=== PATIENT | male | born 1935 | race Caucasian/White ===

== ENCOUNTER 2022-07-24 09:56 | Inpatient (IN) | payer MEDICARE ==
[2022-07-24] MEDS ORDERED: SODIUM CHLORIDE 0.9% 1,000 ML IV STA (10:19)
[2022-07-24] MEDS ORDERED: ASPIRIN 81 MG PO STA (10:19)
[2022-07-24] MEDS ORDERED: DILTIAZEM DRIP BOLUS FROM BAG 1 MG SOLN IV ONE (10:19)
--- NOTE | 2022-07-24 10:23 | ED ---
General Adult HPI - General Chief complaint: Arrhythmia/Palpitations Stated complaint: AFib, Sent by PCP Time Seen by Provider: 07/24/22 10:06 Source: patient, RN notes reviewed, old records reviewed (old laboratories were sent by PCP) Mode of arrival: EMS Limitations: no limitations - History of Present Illness Initial comments: Patient is a pleasant 86-year-old male presenting to the emergency department with lightheadedness. Patient has had nasal congestion and rhinorrhea with mild cough for the past few days. Patient has felt lightheaded for the past day or so. Patient saw his primary care physician and was diagnosed with A. fib and advised to come to the emergency department. Patient does have previous history of this and believes he is on medication including anticoagulation for this. Patient denies palpitations. No chest pain. Patient states he tested negative for influenza and COVID-19 infection in the primary care physician office. - Related Data Home Medications Medication Instructions Recorded Confirmed Apixaban [Eliquis] 5 mg PO BID 07/24/22 07/24/22 Atorvastatin [Lipitor] 40 mg PO HS 07/24/22 07/24/22 Econazole Nitrate [Econazole 1 applic TOPICAL DAILY 07/24/22 07/24/22 Nitrate 1%] Finasteride [Proscar] 5 mg PO DAILY 07/24/22 07/24/22 Levothyroxine Sodium [Levoxyl] 75 mcg PO DAILY 07/24/22 07/24/22 Losartan Potassium 50 mg PO DAILY 07/24/22 07/24/22 Primidone [Mysoline] 50 mg PO DAILY 07/24/22 07/24/22 Spironolactone [Aldactone] 25 mg PO HS 07/24/22 07/24/22 Tamsulosin HCl [Flomax] 0.4 mg PO HS 07/24/22 07/24/22 Allergies Allergy/AdvReac Type Severity Reaction Status Date / Time Penicillins Allergy Unknown Verified 07/24/22 11:13 Childhood Review of Systems ROS Statement: Those systems with pertinent positive or pertinent negative responses have been documented in the HPI. ROS Other: All systems not noted in ROS Statement are negative. Constitutional: Denies: fever Eyes: Denies: eye pain ENT: Reports: congestion. Denies: ear pain Respiratory: Reports: cough. Denies: dyspnea Cardiovascular: Denies: chest pain, palpitations Endocrine: Denies: fatigue Gastrointestinal: Denies: abdominal pain Genitourinary: Denies: dysuria Musculoskeletal: Denies: back pain Skin: Denies: rash Neurological: Denies: weakness Past Medical History Past Medical History: Atrial Flutter, Heart Failure, Hypertension, Sleep Apnea/CPAP/BIPAP, Thyroid Disorder Additional Past Medical History / Comment(s): BPH History of Any Multi-Drug Resistant Organisms: None Reported Past Surgical History: Appendectomy, Orthopedic Surgery Smoking Status: Never smoker Past Alcohol Use History: None Reported Past Drug Use History: None Reported General Exam Limitations: no limitations General appearance: alert, in no apparent distress Head exam: Present: normocephalic Eye exam: Present: normal appearance Neck exam: Present: normal inspection Respiratory exam: Present: normal lung sounds bilaterally Cardiovascular Exam: Present: tachycardia, normal heart sounds Expanded Peripheral pulses: 2+: Radial (R), Radial (L), Posterior Tibialis (R), Posterior Tibialis (L) GI/Abdominal exam: Present: soft. Absent: tenderness Extremities exam: Present: normal inspection. Absent: pedal edema, calf tenderness Neurological exam: Present: alert. Absent: motor sensory deficit Psychiatric exam: Present: normal affect, normal mood Skin exam: Present: normal color Course Vital Signs 07/24/22 07/24/22 07/24/22 09:57 10:26 11:14 Temperature 97.4 F L Pulse Rate 116 H 122 H 109 H Respiratory 18 19 Rate Blood Pressure 157/87 122/85 109/85 O2 Sat by Pulse 98 Oximetry 07/24/22 11:39 Temperature Pulse Rate 98 Respiratory Rate Blood Pressure O2 Sat by Pulse Oximetry - Reevaluation(s) Reevaluation #1: 07/24/22 10:31 Patient confirms he is on eliquis 07/24/22 13:35 EKG #2 at 1316 shows continued H a flutter rate 119. Left axis. LVH criteria. Nonspecific ST-T. EKG interpreted by myself. Patient reevaluated and updated. Case was discussed in detail with Dr. Heller, who will admit covering Dr. Melgar. EKG Findings - EKG Results: EKG: interpreted by ERMD (Atrial flutter rate 118, RVR. Left axis. Incomplete right bundle-branch block. Nonspecific ST-T.) Medical Decision Making - Lab Data Result diagrams: 07/24/22 10:28 07/24/22 10:28 Lab Results 07/24/22 07/24/22 07/24/22 Range/Units 10:28 10: 10:28 WBC 7.2 (3.8-10.6) k/uL RBC 4.96 (4.30-5.90) m/uL Hgb 15.2 (13.0-17.5) gm/dL Hct 45.5 (39.0-53.0) % MCV 91.7 (80.0-100.0) fL MCH 30.7 (25.0-35.0) pg MCHC 33.5 (31.0-37.0) g/dL RDW 14.2 (11.5-15.5) % Plt Count 187 (150-450) k/uL MPV 8.2 Neutrophils % 66 % Lymphocytes % 22 % Monocytes % 6 % Eosinophils % 2 % Basophils % 1 % Neutrophils # 4.7 (1.3-7.7) k/uL Lymphocytes # 1.6 (1.0-4.8) k/uL Monocytes # 0.4 (0-1.0) k/uL Eosinophils # 0.2 (0-0.7) k/uL Basophils # 0.1 (0-0.2) k/uL PT 11.2 (9.0-12.0) sec INR 1.1 (<1.2) APTT 26.6 (22.0-30.0) sec Sodium 143 (137-145) mmol/L Potassium 3.9 (3.5-5.1) mmol/L Chloride 110 H (98-107) mmol/L Carbon Dioxide 24 (22-30) mmol/L Anion Gap 9 mmol/L BUN 24 H (9-20) mg/dL Creatinine 0.92 (0.66-1.25) mg/dL Est GFR (CKD-EPI)AfAm 88 (>60 ml/min/1.73 sqM) Est GFR (CKD-EPI)NonAf 76 (>60 ml/min/1.73 sqM) Glucose 92 (74-99) mg/dL Calcium 8.8 (8.4-10.2) mg/dL Magnesium 1.9 (1.6-2.3) mg/dL Total Bilirubin 0.7 (0.2-1.3) mg/dL AST 29 (17-59) U/L ALT 27 (4-49) U/L Alkaline Phosphatase 73 (38-126) U/L Troponin I (0.000-0.034) ng/mL Total Protein 7.4 (6.3-8.2) g/dL Albumin 4.2 (3.5-5.0) g/dL TSH 1.810 (0.465-4.680) mIU/L Free T4 1.22 (0.78-2.19) ng/dL Free T3 pg/mL 3.9 (2.8-5.3) pg/ml 07/24/22 Range/Units 10:28 WBC (3.8-10.6) k/uL RBC (4.30-5.90) m/uL Hgb (13.0-17.5) gm/dL Hct (39.0-53.0) % MCV (80.0-100.0) fL MCH (25.0-35.0) pg MCHC (31.0-37.0) g/dL RDW (11.5-15.5) % Plt Count (150-450) k/uL MPV Neutrophils % % Lymphocytes % % Monocytes % % Eosinophils % % Basophils % % Neutrophils # (1.3-7.7) k/uL Lymphocytes # (1.0-4.8) k/uL Monocytes # (0-1.0) k/uL Eosinophils # (0-0.7) k/uL Basophils # (0-0.2) k/uL PT (9.0-12.0) sec INR (<1.2) APTT (22.0-30.0) sec Sodium (137-145) mmol/L Potassium (3.5-5.1) mmol/L Chloride (98-107) mmol/L Carbon Dioxide (22-30) mmol/L Anion Gap mmol/L BUN (9-20) mg/dL Creatinine (0.66-1.25) mg/dL Est GFR (CKD-EPI)AfAm (>60 ml/min/1.73 sqM) Est GFR (CKD-EPI)NonAf (>60 ml/min/1.73 sqM) Glucose (74-99) mg/dL Calcium (8.4-10.2) mg/dL Magnesium (1.6-2.3) mg/dL Total Bilirubin (0.2-1.3) mg/dL AST (17-59) U/L ALT (4-49) U/L Alkaline Phosphatase (38-126) U/L Troponin I <0.012 (0.000-0.034) ng/mL Total Protein (6.3-8.2) g/dL Albumin (3.5-5.0) g/dL TSH (0.465-4.680) mIU/L Free T4 (0.78-2.19) ng/dL Free T3 pg/mL (2.8-5.3) pg/ml Critical Care Time Critical Care Time: Yes Total Critical Care Time: 32 Disposition Clinical Impression: Atrial flutter Disposition: ADMITTED IP TO THIS HOSP Is patient prescribed a controlled substance at d/c from ED?: No Referrals: Ousmane Ngo DO [Primary Care Provider] - 1-2 days Time of Disposition: 13:36
[2022-07-24 10:48] LABS: INR 1.1 (<1.2); Partial Thromboplastin Time 26.6 sec (22.0-30.0); Prothrombin Time 11.2 sec (9.0-12.0)
--- NOTE | 2022-07-24 10:49 | XR ---
EXAMINATION TYPE: XR chest 2V DATE OF EXAM: 07/24/2022 COMPARISON: None HISTORY: 86-year-old male dysrhythmia, lightheaded TECHNIQUE: PA and lateral views FINDINGS: Heart limits of normal size. Aorta and pulmonary vasculature within normal limits. Mild hyperinflatio n. Strandy atelectasis in the lower lungs. No az consolidation or pleural effusion. In addition th e mid to lower thoracic spine. IMPRESSION: Hyperinflation may relate to depth of inspiration or underlying emphysema. Heart is borderline in siz e. Otherwise, no definite acute process.
[2022-07-24 10:55] LABS: Basophils # (A) 0.1 k/uL (0-0.2); Basophils % (A) 1 %; Eosinophils # (A) 0.2 k/uL (0-0.7); Eosinophils % (A) 2 %; HCT 45.5 % (39.0-53.0); HGB 15.2 gm/dL (13.0-17.5); Lymphocytes # (A) 1.6 k/uL (1.0-4.8); Lymphocytes % (A) 22 %; MCH 30.7 pg (25.0-35.0); MCHC 33.5 g/dL (31.0-37.0); MCV 91.7 fL (80.0-100.0); Mean Platelet Volume 8.2; Monocytes # (A) 0.4 k/uL (0-1.0); Monocytes % (A) 6 %; Neutrophils # (A) 4.7 k/uL (1.3-7.7); Neutrophils % (A) 66 %; Platelet Count 187 k/uL (150-450); RBC 4.96 m/uL (4.30-5.90); RDW 14.2 % (11.5-15.5); WBC 7.2 k/uL (3.8-10.6)
[2022-07-24 10:58] LABS: Albumin 4.2 g/dL (3.5-5.0); Calcium 8.8 mg/dL (8.4-10.2); Magnesium 1.9 mg/dL (1.6-2.3); Potassium 3.9 mmol/L (3.5-5.1); Total Bilirubin 0.7 mg/dL (0.2-1.3); Total Protein 7.4 g/dL (6.3-8.2)
[2022-07-24 11:14] LABS: T4, Free (Free Thyroxine) 1.22 ng/dL (0.78-2.19)
[2022-07-24] MEDS ORDERED: DILTIAZEM 5 MG/ML 5 ML VIAL IV ONE (11:15)
[2022-07-24] MEDS ORDERED: NALOXONE 0.4 MG/ML 1 ML VIAL IV PRN (13:37)
[2022-07-24] MEDS ORDERED: ACETAMINOPHEN TAB 325 MG TAB PO PRN (13:37)
[2022-07-24] MEDS: DILTIAZEM 125 MG in SODIUM CHLORIDE 0.9% 100 ML IV SCH (14:04)
[2022-07-24] MEDS: SODIUM CHLORIDE 0.9% 1,000 ML IV SCH (14:09)
[2022-07-24] MEDS: CLOTRIMAZOLE 1% CREAM 30 GM TUBE TOPICAL SCH (18:20)
[2022-07-24] MEDS: FINASTERIDE 5 MG TAB PO SCH (19:13)
[2022-07-24] MEDS: APIXABAN 5 MG TAB PO SCH (20:37)
[2022-07-24] MEDS: ATORVASTATIN 40 MG TAB PO SCH (20:37)
[2022-07-24] MEDS: TAMSULOSIN 0.4 MG CAP.ER.24H PO SCH (20:37)
[2022-07-24] MEDS: SPIRONOLACTONE 25 MG TAB PO SCH (20:37)
[2022-07-25] MEDS: LEVOTHYROXINE 75 MCG TAB PO SCH (05:22)
[2022-07-25] MEDS: DILTIAZEM 125 MG in SODIUM CHLORIDE 0.9% 100 ML IV SCH (06:32)
[2022-07-25 07:34] LABS: Basophils % (A) 1 %; Eosinophils # (A) 0.2 k/uL (0-0.7); Eosinophils % (A) 4 %; HCT 42.7 % (39.0-53.0); Lymphocytes # (A) 1.5 k/uL (1.0-4.8); Lymphocytes % (A) 26 %; MCH 30.5 pg (25.0-35.0); MCHC 32.8 g/dL (31.0-37.0); MCV 92.8 fL (80.0-100.0); Mean Platelet Volume 8.4; Monocytes # (A) 0.4 k/uL (0-1.0); Monocytes % (A) 7 %; Neutrophils # (A) 3.5 k/uL (1.3-7.7); Neutrophils % (A) 60 %; Platelet Count 164 k/uL (150-450); RDW 13.8 % (11.5-15.5); WBC 5.8 k/uL (3.8-10.6)
[2022-07-25 07:48] LABS: AST 32 U/L (17-59); African American GFR (CKD) >90 (>60 ml/min/1.73 sqM); Albumin 3.6 g/dL (3.5-5.0); Alkaline Phosphatase 49 U/L (38-126); Anion Gap 7 mmol/L; Blood Urea Nitrogen 22 mg/dL (9-20); Calcium 8.4 mg/dL (8.4-10.2); Carbon Dioxide 21 mmol/L (22-30); Chloride 111 mmol/L (98-107); Glucose 86 mg/dL (74-99); Non-African American GFR(CKD) 81 (>60 ml/min/1.73 sqM); Sodium 139 mmol/L (137-145); Total Protein 6.7 g/dL (6.3-8.2)
[2022-07-25 07:49] LABS: ALT 25 U/L (4-49)
[2022-07-25 07:56] LABS: Potassium 4.1 mmol/L (3.5-5.1)
[2022-07-25] MEDS: PRIMIDONE 50 MG TAB PO SCH (08:17)
[2022-07-25] MEDS: CLOTRIMAZOLE 1% CREAM 30 GM TUBE TOPICAL SCH (08:17)
[2022-07-25] MEDS: APIXABAN 5 MG TAB PO SCH ×2 (08:17→19:53)
[2022-07-25] MEDS: FINASTERIDE 5 MG TAB PO SCH (08:17)
[2022-07-25] MEDS ORDERED: LOSARTAN 50 MG TAB PO SCH (09:00)
--- NOTE | 2022-07-25 10:42 | P.CRDCN ---
History of Present Illness History of present illness: HISTORY OF PRESENTING ILLNESS Patient is pleasant 86-year-old male with history of congestive heart failure, atrial flutter status post prior YENNY cardioversion at [facility] 2020 as well as heart catheterization from [facility] reportedly relatively normal, hypertension who presents from doctor's office secondary to tachycardia. Patient states he did stop his Alquist 3 weeks ago for tooth infection and since that time has been having some issues with feeling his heart racing. Previous in 2020 he did have a syncopal episode apparently with heart rate in the 200 range. He had been on metoprolol however this was discontinued, unclear if this was related to bradycardia. Over last few weeks he has been noticing feeling lightheaded at times when he is standing up and nearly passing out. He denies any chest pain or pressure. He had actually gone his PCP because of sinus congestion however no cough or fevers or chills. EKG shows atrial flutter with nonspecific ST changes. Patient was placed on Cardizem drip with heart rates still in the 90s to 100s. REVIEW OF SYSTEMS At the time of my exam: CONSTITUTIONAL: Denies fever or chills. CARDIOVASCULAR: Denies chest pain, shortness of breath, orthopnea, PND or palpitations. +lightheadedness RESPIRATORY: Denies cough. GASTROINTESTINAL: Denies abdominal pain, diarrhea, constipation, nausea or vomiting. MUSCULOSKELETAL: Denies myalgias. NEUROLOGIC: Denies numbness, tingling or weakness. ENDOCRINE: Denies fatigue, weight change, polydipsia or polyurina. GENITOURINARY: Denies burning, hematuria or urgency with micturation. HEMATOLOGIC: Denies history of anemia or bleeding. PHYSICAL EXAMINATION Vital signs reviewed. CONSTITUTIONAL: No apparent distress. HEENT: Head is normocephalic. Pupils are equal, round. Sclerae anicteric. Mucous membranes of the mouth are moist. No JVD. No carotid bruit. CHEST EXAMINATION: Lungs are clear to auscultation. No chest wall tenderness is noted on palpation or with deep breathing. HEART EXAMINATION: Irregular rate and rhythm, tcahycardic. S1, S2 heard. No murm urs, gallops or rub. ABDOMEN: Soft, nontender. Positive bowel sounds. EXTREMITIES: 2+ peripheral pulses, no lower extremity edema and no calf tenderness. NEUROLOGIC EXAMINATION: Patient is awake, alert and oriented x3. ASSESSMENT 1. Typical atrial flutter with RVR 2. Episodes of lightheadedness possibly exacerbated by atrial flutter 3. History of syncope 4. Previously taken off metoprolol, likely related to bradycardic episodes 5. Hypertension 6. Recent sinus congestion 7. History of congestive heart failure PLAN Patient with lightheadedness which likely is exacerbated by the atrial flutter. Lightheadedness is episodic and apparently had some issues with bradycardia in the past. Given patient fairly symptomatic discussed rhythm control with YENNY and cardioversion and patient is agreeable. Long-term patient may benefit from ablation even at his age given high success rate of atrial flutter ablation. Decrease losartan to 25 mg given lightheadedness. If YENNY and cardioversion successful and patient stable and afternoon, patient may be discharged home. Past Medical History Past Medical History: Atrial Flutter, Heart Failure, Hypertension, Prostate Disorder, Sleep Apnea/CPAP/BIPAP, Thyroid Disorder Additional Past Medical History / Comment(s): BPH History of Any Multi-Drug Resistant Organisms: None Reported Past Surgical History: Appendectomy, Orthopedic Surgery Past Anesthesia/Blood Transfusion Reactions: No Reported Reaction Smoking Status: Never smoker - Past Family History Father Family Medical History: Cancer, Diabetes Mellitus Mother Family Medical History: Diabetes Mellitus Brother(s) Family Medical History: Diabetes Mellitus Medications and Allergies Home Medications Medication Instructions Recorded Confirmed Type Apixaban [Eliquis] 5 mg PO BID 07/24/22 07/24/22 History Atorvastatin [Lipitor] 40 mg PO HS 07/24/22 07/24/22 History Econazole Nitrate [Econazole 1 applic TOPICAL DAILY 07/24/22 07/24/22 History Nitrate 1%] Finasteride [Proscar] 5 mg PO DAILY 07/24/22 07/24/22 History Levothyroxine Sodium [Levoxyl] 75 mcg PO DAILY 07/24/22 07/24/22 History Losartan Potassium 50 mg PO DAILY 07/24/22 07/24/22 History Primidone [Mysoline] 50 mg PO DAILY 07/24/22 07/24/22 History Spironolactone [Aldactone] 25 mg PO HS 07/24/22 07/24/22 History Tamsulosin HCl [Flomax] 0.4 mg PO HS 07/24/22 07/24/22 History Allergies Allergy/AdvReac Type Severity Reaction Status Date / Time Penicillins Allergy Unknown Verified 07/24/22 11:13 Childhood Physical Exam Vitals: Vital Signs Temp Pulse Pulse Resp BP BP Pulse Ox 07/25/22 08:15 98 F 105 H 18 122/68 98 07/25/22 04:00 115 H 16 152/93 97 07/25/22 00:00 111 H 16 136/87 97 07/24/22 20:00 97.7 F 113 H 16 131/80 98 07/24/22 18:29 18 07/24/22 17:10 97.7 F 116 H 18 162/86 95 07/24/22 16:40 98.2 F 110 H 18 127/94 98 07/24/22 14:03 120 H 18 119/94 07/24/22 11:39 98 07/24/22 11:14 109 H 109/85 Intake and Output 07/24/22 07/25/22 07/25/22 22:59 06:59 14:59 Intake Total 603.167 485 180 Balance 603.167 485 180 Intake: Intake, IV Titration 5.167 0 Amount Diltiazem 125 mg In 5.167 0 Sodium Chloride 0.9% 100 ml @ 5 MG/HR 5 mls/hr IV .Q24H [facility] Rx#:[id number] Oral 598 485 180 Other: Voiding Method Toilet Toilet Toilet # Voids 1 1 Weight 86.183 kg Results 07/25/22 05:40 07/25/22 05:40 Cardiac Enzymes 07/24/22 07/24/22 07/24/22 Range/Units 10:28 10:28 14:43 AST 29 (17-59) U/L Troponin I <0.012 <0.012 (0.000-0.034) ng/mL 07/24/22 07/25/22 Range/Units 17:28 05:40 AST 32 (17-59) U/L Troponin I <0.012 (0.000-0.034) ng/mL Coagulation 07/24/22 Range/Units 10:28 PT 11.2 (9.0-12.0) sec APTT 26.6 (22.0-30.0) sec CBC 07/24/22 07/25/22 Range/Units 10:28 05:40 WBC 7.2 5.8 (3.8-10.6) k/uL RBC 4.96 4.60 (4.30-5.90) m/uL Hgb 15.2 14.0 (13.0-17.5) gm/dL Hct 45.5 42.7 (39.0-53.0) % Plt Count 187 164 (150-450) k/uL Comprehensive Metabolic Panel 07/24/22 07/25/22 Range/Units 10:28 05:40 Sodium 143 139 (137-145) mmol/L Potassium 3.9 4.1 (3.5-5.1) mmol/L Chloride 110 H 111 H (98-107) mmol/L Carbon Dioxide 24 21 L (22-30) mmol/L BUN 24 H 22 H (9-20) mg/dL Creatinine 0.92 0.81 (0.66-1.25) mg/dL Glucose 92 86 (74-99) mg/dL Calcium 8.8 8.4 (8.4-10.2) mg/dL AST 29 32 (17-59) U/L ALT 27 25 (4-49) U/L Alkaline Phosphatase 73 49 (38-126) U/L Total Protein 7.4 6.7 (6.3-8.2) g/dL Albumin 4.2 3.6 (3.5-5.0) g/dL Current Medications Generic Name Dose Route Start Last Admin Trade Name Freq PRN Reason Stop Dose Admin Acetaminophen 650 mg 07/24/22 13:37 Acetaminophen Tab 325 Mg Tab PO Q6HR PRN Mild Pain or Fever > 100.5 Apixaban 5 mg 07/24/22 21:00 07/25/22 08:17 Apixaban 5 Mg Tab PO 5 mg BID [facility] Administration Protocol Atorvastatin Calcium 40 mg 07/24/22 21:00 07/24/22 20:37 Atorvastatin 40 Mg Tab PO 40 mg HS [facility] Administration Clotrimazole 1 applic 07/24/22 18:15 07/25/22 08:17 Clotrimazole 1% Cream 30 Gm Tube TOPICAL 1 applic DAILY [facility] Administration Finasteride 5 mg 07/24/22 18:00 07/25/22 08:17 Finasteride 5 Mg Tab PO 5 mg DAILY [facility] Administration Diltiazem HCl 125 mg/ Sodium 125 mls @ 5 mls/hr 07/24/22 13:45 07/25/22 06:32 Chloride IV 5 mg/hr .Q24H [facility] 5 mls/hr Administration 5 MG/HR Sodium Chloride 1,000 mls @ 20 mls/hr 07/24/22 13:45 07/24/22 14:09 Saline 0.9% IV 20 mls/hr .Q24H [facility] Administration Levothyroxine Sodium 75 mcg 07/25/22 06:30 07/25/22 05:22 Levothyroxine 75 Mcg Tab PO 75 mcg DAILY@0630 [facility] Administration Losartan Potassium 50 mg 07/25/22 09:00 07/25/22 08:17 Losartan 50 Mg Tab PO 50 mg DAILY [facility] Administration Naloxone HCl 0.2 mg 07/24/22 13:37 Naloxone 0.4 Mg/Ml 1 Ml Vial IV Q2M PRN Opioid Reversal Primidone 50 mg 07/25/22 09:00 07/25/22 08:17 Primidone 50 Mg Tab PO 50 mg DAILY [facility] Administration Spironolactone 25 mg 07/24/22 21:00 07/24/22 20:37 Spironolactone 25 Mg Tab PO 25 mg HS [facility] Administration Tamsulosin HCl 0.4 mg 07/24/22 21:00 07/24/22 20:37 Tamsulosin 0.4 Mg Cap.Er.24h PO 0.4 mg HS [facility] Administration Intake and Output 07/24/22 07/25/22 07/25/22 22:59 06:59 14:59 Intake Total 603.167 485 180 Balance 603.167 485 180 Intake: Intake, IV Titration 5.167 0 Amount Diltiazem 125 mg In 5.167 0 Sodium Chloride 0.9% 100 ml @ 5 MG/HR 5 mls/hr IV .Q24H [facility] Rx#:[id number] Oral 592 485 180 Other: Voiding Method Toilet Toilet Toilet # Voids 1 1 Weight 86.183 kg 07/25/22 05:40 07/25/22 05:40
[2022-07-25] MEDS ORDERED: LACTATED RINGERS 1,000 ML IV ONE (15:11)
[2022-07-25] MEDS ORDERED: BENZOCAINE SPRAY 1 CAN TOPICAL ONE (15:11)
[2022-07-25] MEDS ORDERED: LIDOCAINE 2% INJ 20 MG/ML (2 ML VIAL) ONE (15:25)
[2022-07-25] MEDS ORDERED: PROPOFOL 10 MG/ML 20 ML VIAL IV ONE (15:25)
[2022-07-25] MEDS: SODIUM CHLORIDE 0.9% 1,000 ML IV SCH (17:22)
[2022-07-25] MEDS: TAMSULOSIN 0.4 MG CAP.ER.24H PO SCH (19:53)
[2022-07-25] MEDS: SPIRONOLACTONE 25 MG TAB PO SCH (19:53)
[2022-07-25] MEDS: ATORVASTATIN 40 MG TAB PO SCH (19:54)
--- NOTE | 2022-07-25 23:01 | P.HPIM ---
History of Present Illness H&P Date: 07/25/22 Chief Complaint: Lightheadedness Patient is a 86-year-old male with a known history of atrial flutter, hypertension, BPH, obstructive sleep apnea and hypothyroidism was sent from his doctor's office secondary to tachycardia. Patient does have prior history of YENNY cardioversion at [facility] in 2020. Patient states that he has been having feeling palpitations and heart racing or fast. Patient states that he has been having dizziness and lightheadedness and near syncopal episodes. patient has is on metoprolol previously but has been discontinued. Patient was also on Eliquis which is on hold due to tooth infection for the past 3 weeks. Denies any complaints of cough or sputum production. No fever no chills. On admission EKG showed atrial flutter/tachycardia with rapid regular response. Chest x-ray showed hyperinflation may relate to depth of inspiration or underlying emphysema. Heart is borderline in size. Otherwise no definitive acute process. Laboratory data showed WBC 7.2 hemoglobin 15.1 platelets 187 INR 1.1 Sodium 143 potassium 3.9 chloride 110 bicarb is 24 BUN 24 and creatinine 0.92, magnesium 1.9 and troponin x3 negative and TSH 1.810. Liver enzymes are not elevated. Review of Systems Constitutional: Patient denies any fever or chills . generalized weakness. no weight loss. Abdomen: Patient denied nausea vomiting and diarrhea and abdominal pain. Cardiovascular: Patient denies any chest pain or short of breath. Patient was complaining of palpitations/heart racing or fast.. No leg swelling. Respiratory: patient denied any cough or sputum production. No shortness of breath Neurologic: Patient denied any numbness or tingling headache. Musculoskeletal: Patient denies any complaints of joint swelling or deformity. Skin: Negative Psychiatric: Negative Endocrine: No heat or cold intolerance. No recent weight gain. Genitourinary: No dysuria or hematuria. All other 14 point ROS negative except the above Past Medical History Past Medical History: Atrial Flutter, Heart Failure, Hypertension, Prostate Disorder, Sleep Apnea/CPAP/BIPAP, Thyroid Disorder Additional Past Medical History / Comment(s): BPH History of Any Multi-Drug Resistant Organisms: None Reported Past Surgical History: Appendectomy, Orthopedic Surgery Past Anesthesia/Blood Transfusion Reactions: No Reported Reaction Smoking Status: Never smoker - Past Family History Father Family Medical History: Cancer, Diabetes Mellitus Mother Family Medical History: Diabetes Mellitus Brother(s) Family Medical History: Diabetes Mellitus Medications and Allergies Home Medications Medication Instructions Recorded Confirmed Type Apixaban [Eliquis] 5 mg PO BID 07/24/22 07/24/22 History Atorvastatin [Lipitor] 40 mg PO HS 07/24/22 07/24/22 History Econazole Nitrate [Econazole 1 applic TOPICAL DAILY 07/24/22 07/24/22 History Nitrate 1%] Finasteride [Proscar] 5 mg PO DAILY 07/24/22 07/24/22 History Levothyroxine Sodium [Levoxyl] 75 mcg PO DAILY 07/24/22 07/24/22 History Losartan Potassium 50 mg PO DAILY 07/24/22 07/24/22 History Primidone [Mysoline] 50 mg PO DAILY 07/24/22 07/24/22 History Spironolactone [Aldactone] 25 mg PO HS 07/24/22 07/24/22 History Tamsulosin HCl [Flomax] 0.4 mg PO HS 07/24/22 07/24/22 History Allergies Allergy/AdvReac Type Severity Reaction Status Date / Time Penicillins Allergy Unknown Verified 07/24/22 11:13 Childhood Physical Exam Vitals: Vital Signs Temp Pulse Resp BP Pulse Ox 07/25/22 19:41 71 18 126/71 95 07/25/22 18:41 75 18 131/69 98 07/25/22 18:11 76 17 137/73 98 07/25/22 17:41 71 18 144/66 07/25/22 17:26 73 17 145/81 07/25/22 17:11 69 18 168/83 99 07/25/22 16:56 68 17 152/91 99 07/25/22 16:47 98.1 F 67 17 163/81 98 07/25/22 16:26 80 18 127/74 95 07/25/22 15:58 67 18 131/65 95 07/25/22 15:46 70 18 118/70 97 07/25/22 15:43 75 20 128/70 97 07/25/22 15:40 77 20 133/77 97 07/25/22 15:13 74 20 161/78 97 07/25/22 11:10 70 18 124/75 98 07/25/22 08:15 98 F 105 H 18 122/68 98 07/25/22 04:00 115 H 16 152/93 97 07/25/22 00:00 111 H 16 136/87 97 Intake and Output 07/25/22 07/25/22 07/25/22 06:59 14:59 22:59 Intake Total 485 180 780 Balance 485 180 780 Intake: IV 600 Intake, IV Titration 0 Amount Diltiazem 125 mg In 0 Sodium Chloride 0.9% 100 ml @ 5 MG/HR 5 mls/hr IV .Q24H [facility] Rx#:[id number] Oral 485 180 180 Other: Voiding Method Toilet Toilet # Voids 1 1 PHYSICAL EXAMINATION: Patient is lying in the bed comfortably, no acute distress, awake alert and oriented.. HEENT: Normocephalic. Neck is supple. Pupils reactive. Nostrils clear. Oral cavity is moist. Neck reveals no JVD, carotid bruits, or thyromegaly. CHEST EXAMINATION: Trachea is central. Symmetrical expansion. Lung henson clear to auscultation and percussion. CARDIAC: Normal S1, S2 with no gallops. No murmurs ABDOMEN: Soft. Bowel sounds normal. No organomegaly. No abdominal bruits. Extremities: reveal no edema. No clubbing or cyanosis Neurologically awake, alert, oriented x3 with well-coordinated movements. No focal deficits noted Skin: No rash or skin lesions. Psychiatric: Cooperative. Nonsuicidal Musculoskeletal: No joint swelling or deformity. Normal range of motion. Results CBC & Chem 7: 07/25/22 05:40 07/25/22 05:40 Labs: Abnormal Lab Results - Last 24 Hours (Table) 07/25/22 Range/Units 05:40 Chloride 111 H (98-107) mmol/L Carbon Dioxide 21 L (22-30) mmol/L BUN 22 H (9-20) mg/dL Thrombosis Risk Factor Assmnt - DVT/VTE Prophylaxis DVT/VTE Prophylaxis: Pharmacologic Prophylaxis ordered - Choose All That Apply Any of the Below Risk Factors Present?: Yes Each Factor Represents 1 point: Obesity (BMI >25) Other Risk Factors: Yes Each Risk Factor Represents 3 Points: Age 75 years or older Other congenital or acquired thrombophilia - If yes, enter type in comment: No Thrombosis Risk Factor Assessment Total Risk Factor Score: 4 Thrombosis Risk Factor Assessment Level: Moderate Risk Assessment and Plan Assessment: Atrial flutter with rapid regular rate Lightheadedness and near syncopal episode secondary to above History of atrial flutter and currently has not been taking metoprolol daily because of bradycardia and off Eliquis for the past 3 weeks.. Hypertension Chronic CHF ejection fraction unknown. Obstructive sleep apnea Hypothyroidism BPH DVT prophylaxis. Plan: Patient will be continued on telemetry monitoring. Patient was started on Cardizem drip and was given IV hydration. Patient was seen by cardiology and was taken to or for YENNY cardioversion. Continue with Eliquis and other home medications. Follow-up closely. Time with Patient: Greater than 30
--- NOTE | 2022-07-25 23:56 | P.TEE ---
Description of Procedure(s): Procedure performed: Transesophageal Echocardiogram with color flow doppler, pulsed wave doppler and continuous wave doppler, CV x 1 Moderate conscious sedation: Moderate conscious sedation was supplied by anesthesia, see separate report Complications: none Indications: Atrial flutter PROCEDURE: After the risks, benefits and alternatives of the above mentioned procedure was explained in detail with the patient, informed consent was obtained. Patient was brought to the lab in a fasting state. Patient was given sedation by anesthesia, see separate report. The throat was sprayed with Hurricane to anesthetize the throat. A lubricated Omni probe was then introduced into the esophagus and stomach and multiple views were obtained. 2D echo with color flow doppler, pulsed wave doppler and continuous wave doppler was utilized. Agitated saline bubbles were injected to assess for any intra- atrial shunt. The probe was then removed. 200 J was used to perform synchronized cardioversion 1 with a resultant sinus rhythm. Patient tolerated the procedure well. Patient was transferred to the post procedure area in [facility] and satisfactory condition. FINDINGS: 1. The aortic valve is an tricuspid with normal function with trace aortic regurgitation. 2. The mitral valve appears be normal with mild mitral regurgitation. 3. Tricuspid valve with mild tricuspid regurgitation. 4. The interatrial septum is intact. No evidence of PFO. 5. Left atrial appendage is free of clot. 6. Left ventricular ejection fraction is 40-45% with global hypokinesis.
[2022-07-26 05:41] LABS: Basophils % (A) 1 %; Eosinophils # (A) 0.2 k/uL (0-0.7); Eosinophils % (A) 3 %; HCT 36.6 % (39.0-53.0); HGB 12.3 gm/dL (13.0-17.5); Lymphocytes # (A) 1.3 k/uL (1.0-4.8); Lymphocytes % (A) 24 %; MCH 30.8 pg (25.0-35.0); MCHC 33.8 g/dL (31.0-37.0); MCV 91.1 fL (80.0-100.0); Mean Platelet Volume 8.5; Monocytes # (A) 0.4 k/uL (0-1.0); Monocytes % (A) 7 %; Neutrophils # (A) 3.3 k/uL (1.3-7.7); Neutrophils % (A) 62 %; Platelet Count 146 k/uL (150-450); RBC 4.01 m/uL (4.30-5.90); RDW 14.2 % (11.5-15.5); WBC 5.3 k/uL (3.8-10.6)
[2022-07-26 05:59] LABS: African American GFR (CKD) >90 (>60 ml/min/1.73 sqM); Anion Gap 3 mmol/L; Blood Urea Nitrogen 19 mg/dL (9-20); Carbon Dioxide 26 mmol/L (22-30); Chloride 110 mmol/L (98-107); Glucose 91 mg/dL (74-99); Non-African American GFR(CKD) 79 (>60 ml/min/1.73 sqM); Sodium 139 mmol/L (137-145)
[2022-07-26] MEDS: LEVOTHYROXINE 75 MCG TAB PO SCH (06:38)
[2022-07-26] MEDS: CLOTRIMAZOLE 1% CREAM 30 GM TUBE TOPICAL SCH (08:08)
[2022-07-26] MEDS: PRIMIDONE 50 MG TAB PO SCH (08:08)
[2022-07-26] MEDS: APIXABAN 5 MG TAB PO SCH (08:08)
[2022-07-26] MEDS: FINASTERIDE 5 MG TAB PO SCH (08:08)
[2022-07-26 08:12] VITALS: TEMP 97.9
[2022-07-26] MEDS ORDERED: LOSARTAN 25 MG TAB PO SCH (09:00)
--- NOTE | 2022-07-26 11:16 | P.PN ---
Subjective Progress Note Date: 07/26/22 HISTORY OF PRESENTING ILLNESS Patient is pleasant 86-year-old male with history of congestive heart failure, atrial flutter status post prior YENNY cardioversion at [facility] 2020 as well as heart catheterization from [facility] reportedly relatively normal, hypertension who presents from doctor's office secondary to tachycardia. Patient states he did stop his Alquist 3 weeks ago for tooth infection and since that time has been having some issues with feeling his heart racing. Previous in 2020 he did have a syncopal episode apparently with heart rate in the 200 range. He had been on metoprolol however this was discontinued, unclear if this was related to bradycardia. Over last few weeks he has been noticing feeling lightheaded at times when he is standing up and nearly passing out. He denies any chest pain or pressure. He had actually gone his PCP because of sinus congestion however no cough or fevers or chills. EKG shows atrial flutter with nonspecific ST changes. Patient was placed on Cardizem drip with heart rates still in the 90s to 100s. 07/26 Yesterday, patient underwent YENNY and electrocardioversion with successful to sinus rhythm. He remains in a sinus rhythm this morning. Patient states he did not go home yesterday because of the weather. He denies having any palpitations, shortness of breath lightheadedness or dizziness. PHYSICAL EXAMINATION Vital signs reviewed. CONSTITUTIONAL: No apparent distress. HEENT: Head is normocephalic. Pupils are equal, round. Sclerae anicteric. Mucous membranes of the mouth are moist. No JVD. No carotid bruit. CHEST EXAMINATION: Lungs are clear to auscultation. No chest wall tenderness is noted on palpation or with deep breathing. HEART EXAMINATION: Irregular rate and rhythm, tcahycardic. S1, S2 heard. No murmurs, gallops or rub. ABDOMEN: Soft, nontender. Positive bowel sounds. EXTREMITIES: 2+ peripheral pulses, no lower extremity edema and no calf tenderness. NEUROLOGIC EXAMINATION: Patient is awake, alert and oriented x3. ASSESSMENT 1. Typical atrial flutter with RVR status post cardioversion 2. Episodes of lightheadedness possibly exacerbated by atrial flutter 3. History of syncope 4. Previously taken off metoprolol, likely related to bradycardic episodes 5. Hypertension 6. Recent sinus congestion 7. History of congestive heart failure PLAN Continue patient on current medications Patient is cleared from cardiology for discharge Nurse practitioner note has been reviewed, I agree with the documented findings and plan of care. Patient was seen and examined. Objective - Vital Signs Vital signs: Vital Signs Temp 97.9 F 07/26/22 08:00 Pulse 79 07/26/22 08:00 Resp 16 07/26/22 08:00 BP 136/80 07/26/22 08:00 Pulse Ox 97 07/26/22 08:09 FiO2 Intake & Output 07/25/22 07/26/22 07/26/22 18:59 06:59 18:59 Intake Total 960 1970 Balance 960 1970 Intake: IV 600 Intake, IV Titration 1000 Amount Lactated Ringers 1,000 ml 1000 @ 0 mls/hr IV .[employer] Rx#:[id number] Oral 360 970 Other: Voiding Method Toilet Toilet Toilet # Voids 1 2 - Labs CBC & Chem 7: 07/26/22 05:29 07/26/22 05:29 Labs: Abnormal Lab Results - Last 24 Hours (Table) 07/26/22 07/26/22 Range/Units 05:29 05:29 RBC 4.01 L (4.30-5.90) m/uL Hgb 12.3 L (13.0-17.5) gm/dL Hct 36.6 L (39.0-53.0) % Plt Count 146 L (150-450) k/uL Chloride 110 H (98-107) mmol/L Calcium 8.0 L (8.4-10.2) mg/dL
[2022-07-26 12:13] VITALS: BP 154/81; PULSE 70; RESP 17
[2022-07-26] MEDS: SODIUM CHLORIDE 0.9% 1,000 ML IV SCH (14:10)
[2022-07-26] MEDS: DILTIAZEM 125 MG in SODIUM CHLORIDE 0.9% 100 ML IV SCH (14:10)
== END 2022-07-26 15:04 | disposition home or self-care (01) | DRG 310 ==
LOC: EC 09:56 → 3SCARD 13:37
PROVIDERS: ADMIT Hospitalist; ATTEND Hospitalist
PROC: B246ZZ4 Ultrasonography of Right and Left Heart, Transesophageal (ICD-10-PCS; principal; 2022-07-25 10:25)
PROC: 5A2204Z Restoration of Cardiac Rhythm, Single (ICD-10-PCS; principal; 2022-07-25 10:25)
DX: I48.3 Typical atrial flutter (principal); E03.9 Hypothyroidism, unspecified; G47.33 Obstructive sleep apnea (adult) (pediatric); I11.0 Hypertensive heart disease with heart failure; I48.91 Unspecified atrial fibrillation; I50.9 Heart failure, unspecified; J43.9 Emphysema, unspecified; K04.7 Periapical abscess without sinus; N40.0 Benign prostatic hyperplasia without lower urinary tract symptoms; I45.10 Unspecified right bundle-branch block; I08.3 Combined rheumatic disorders of mitral, aortic and tricuspid valves; Z79.01 Long term (current) use of anticoagulants; Z79.890 Hormone replacement therapy; Z79.899 Other long term (current) drug therapy; Z88.0 Allergy status to penicillin
CPT/HCPCS: 36415; 71046; 80048; 80053; 83735; 84439; 84443; 84481; 84484; 85025; 85610; 85730; 92960; 93005; 93312; 93320; 93325; 94760; 96365; 96366; 96376; 99291

== ENCOUNTER 2022-09-01 09:24 | Day surgery (SDC) | payer MEDICARE ==
[2022-09-01] MEDS: SODIUM CHLORIDE 0.9% 1,000 ML IV SCH (10:20)
[2022-09-01 10:22] LABS: Basophils % (A) 1 %; Eosinophils # (A) 0.2 k/uL (0-0.7); Eosinophils % (A) 4 %; HCT 43.1 % (39.0-53.0); HGB 14.5 gm/dL (13.0-17.5); Lymphocytes # (A) 1.5 k/uL (1.0-4.8); Lymphocytes % (A) 27 %; MCH 30.4 pg (25.0-35.0); MCHC 33.7 g/dL (31.0-37.0); MCV 90.1 fL (80.0-100.0); Mean Platelet Volume 7.3; Monocytes # (A) 0.4 k/uL (0-1.0); Monocytes % (A) 7 %; Neutrophils # (A) 3.3 k/uL (1.3-7.7); Neutrophils % (A) 59 %; Platelet Count 229 k/uL (150-450); RBC 4.79 m/uL (4.30-5.90); RDW 13.8 % (11.5-15.5); WBC 5.6 k/uL (3.8-10.6)
[2022-09-01 10:35] LABS: African American GFR (CKD) >90 (>60 ml/min/1.73 sqM); Anion Gap 7 mmol/L; Blood Urea Nitrogen 18 mg/dL (9-20); Calcium 8.7 mg/dL (8.4-10.2); Carbon Dioxide 26 mmol/L (22-30); Chloride 106 mmol/L (98-107); Glucose 97 mg/dL (74-99); Non-African American GFR(CKD) 80 (>60 ml/min/1.73 sqM); Potassium 3.9 mmol/L (3.5-5.1); Sodium 139 mmol/L (137-145)
[2022-09-01] MEDS ORDERED: MIDAZOLAM 2 MG/2 ML VIAL ONE (12:47)
[2022-09-01] MEDS ORDERED: LIDOCAINE 2% INJ 20 MG/ML (2 ML VIAL) ONE (12:47)
[2022-09-01] MEDS ORDERED: fentaNYL (PF) 50 MCG/ML 2 ML AMP ONE (12:47)
[2022-09-01] MEDS ORDERED: HYDROmorphone (PF) 1 MG/ML ONE (12:47)
[2022-09-01] MEDS ORDERED: SUCCINYLCHOLINE CHLORIDE 200 MG/10 ML VIAL IV ONE (12:47)
[2022-09-01] MEDS ORDERED: ROCURONIUM 10 MG/ML (5 ML VIAL) IV ONE (12:47)
[2022-09-01] MEDS ORDERED: PROPOFOL 10 MG/ML 20 ML VIAL IV ONE (12:47)
[2022-09-01] MEDS ORDERED: ISOPROTERENOL 250 MCG/1.25 ML SYR IV ONE (12:47)
--- NOTE | 2022-09-01 13:04 | P.HPCAR ---
History of Present Illness This is Dr. Romero dictating an H/P on this patient The patient was interviewed and examined IMPRESSION / ASSESSMENT: Symptomatic typical atrial flutter, failed medical treatment and electrical cardioversion Associated nonischemic cardio myopathy In sinus rhythm LV function normalizes [id number] nonobstructive CAD PLAN: Proceed with diagnostic EP study and radiofrequency ablation for typical atrial flutter Continue anticoagulation Continue anti-atherosclerotic treatment HPI Patient complains of shortness of breath and dizziness every time he goes typical atrial flutter He is undergone elective cardioversion that this occurs repeatedly ROS: No fever chills or rigors, no cough, phlegm or expectoration, no nausea, vomiting or diarrhea, no hematuria, dysuria, no musculoskeletal complaints, no strokes or seizures, no skin lesions. EXAMINATION: Afebrile 98.2F normal respirations, blood pressure 160/80 mmHg Breath sounds equal entry bilaterally no rhonchi no crackles Normal heart sounds normal S1 normal S2 no murmurs no gallops no rub Extremities warm no edema No JVD REVIEW OF LABS, ECG & MEDICAL DATA Normal white count hemoglobin 14.5 Hematocrit 43 Normal electrolytes Physical Exam Vitals: Vital Signs Temp Pulse Resp BP Pulse Ox 09/01/22 10:18 98.2 F 82 18 167/80 100 Intake and Output 08/31/22 09/01/22 09/01/22 22:59 06:59 14:59 Intake Total 20 Balance 20 Intake: IV 20 Past Medical History Past Medical History: Atrial Fibrillation, Atrial Flutter, Heart Failure, Hypertension, Prostate Disorder, Sleep Apnea/CPAP/BIPAP, Thyroid Disorder Additional Past Medical History / Comment(s): BPH, doesn't use cpap see Dr Romero's H & P History of Any Multi-Drug Resistant Organisms: None Reported Past Surgical History: Appendectomy, Orthopedic Surgery Additional Past Surgical History / Comment(s): rt knee scope x2 meniscus and t orn patella tendon Past Anesthesia/Blood Transfusion Reactions: No Reported Reaction Smoking Status: Former smoker - Past Family History Father Family Medical History: Cancer, Diabetes Mellitus Mother Family Medical History: Diabetes Mellitus Brother(s) Family Medical History: Diabetes Mellitus Physical Examination Vital Signs Temp Pulse Resp BP Pulse Ox 09/01/22 10:18 98.2 F 82 18 167/80 100 Intake and Output 08/31/22 09/01/22 09/01/22 22:59 06:59 14:59 Intake Total 20 Balance 20 Intake: IV 20 Results 09/01/22 10:15 09/01/22 10:15 CBC 09/01/22 Range/Units 10:15 WBC 5.6 (3.8-10.6) k/uL RBC 4.79 (4.30-5.90) m/uL Hgb 14.5 (13.0-17.5) gm/dL Hct 43.1 (39.0-53.0) % Plt Count 229 (150-450) k/uL Comprehensive Metabolic Panel 09/01/22 Range/Units 10:15 Sodium 139 (137-145) mmol/L Potassium 3.9 (3.5-5.1) mmol/L Chloride 106 (98-107) mmol/L Carbon Dioxide 26 (22-30) mmol/L BUN 18 (9-20) mg/dL Creatinine 0.85 (0.66-1.25) mg/dL Glucose 97 (74-99) mg/dL Calcium 8.7 (8.4-10.2) mg/dL Current Medications Generic Name Dose Route Start Last Admin Trade Name Freq PRN Reason Stop Dose Admin Sodium Chloride 1,000 mls @ 20 mls/hr 09/01/22 07:01 09/01/22 10:20 Saline 0.9% IV 10/01/22 07:02 20 mls .Q24H INGRID Administration Intake and Output 08/31/22 09/01/22 09/01/22 22:59 06:59 14:59 Intake Total 20 Balance 20 Intake: IV 20 09/01/22 10:15 09/01/22 10:15
[2022-09-01] MEDS ORDERED: LIDOCAINE 1% INJ 10MG/ML (30 ML VIAL-PF) SQ ONE (13:33)
[2022-09-01] MEDS ORDERED: HEPARIN SODIUM (1,000 UNIT/ML) 1,000 UNIT in SODIUM CHLORIDE 0.9% 1,000 ML IRRIGATION ONE (13:41)
[2022-09-01] MEDS ORDERED: IV FLUID CONTINUATION 1,000 ML IV ONE (15:08)
--- NOTE | 2022-09-01 15:43 | P.EPPROC ---
- EP Procedure Note Electrophysiology Procedure Note: Diagnosis Symptomatic typical atrial flutter with RVR, paroxysmal Associated cardio myopathy Normalization of LV function during normal rhythm Result Intracardiac echo revealed absence of any left atrial appendage thrombus Thickened pericardium with exudate at the LV base, close to the left atrium Successful ablation for typical atrial flutter with complete bidirectional block with differential pacing Isthmus conduction time greater than 220 seconds Details Patient was brought to the EP lab in a fasting state. Written informed consent was obtained prior to the procedure. Venous access was obtained of the right left femoral veins. Diagnostic catheters were placed in the high right atrium, His bundle area, right ventricle and coronary sinus. Later mapping and ablation catheter and intracardiac echo catheter placed First intracardiac echocardiography was performed. Thickened pericardium noted. Exudative effusion, small, limited to the base of the LV, closest to the left atrium. No intracardiac masses noted. Last left atrium and a large left atrial appendage Short cavo tricuspid isthmus with a thick eustachian ridge. The tricuspid annulus was dilated as well as the eustachian ridge area Mapping Was Performed with Raz Sinus Pacing As Well As Low right atrial free wall pacing An RF line of block was made the cavo tricuspid isthmus from the tricuspid valve to the eustachian ridge Baseline was interrogated differential pacing and a complete block was noted bidirectionally Following that a diagnostic EP study is performed MA interval 170 ms, QRS 110 ms QT 457 ms Sinus cycle 900 ms AH 93 and HV 51 ms Sinus recovery times at 600, 500 400 ms were 1115, 923 and 1256 ms AV node Wenckebach block 370 ms VA Wenckebach block 520 ms High-dose Isuprel used Improvement in AV node Wenckebach block at 260 ms No inducible arrhythmia with atrial pacing Result Successful atrial flutter ablation Plan Continue anticoagulation and antihypertensive therapy
[2022-09-01] MEDS ORDERED: ACETAMINOPHEN TAB 325 MG TAB PO PRN (15:44)
[2022-09-01] MEDS ORDERED: ACETAMINOPHEN IV (For NPO) 1,000 MG in EMPTY BAG 1 BAG IVPB ONE (16:00)
[2022-09-01 16:55] VITALS: RESP 18
[2022-09-01] MEDS ORDERED: LOSARTAN 50 MG TAB PO STA (19:05)
[2022-09-01] MEDS: APIXABAN 5 MG TAB PO SCH (20:12)
[2022-09-01] MEDS ORDERED: SPIRONOLACTONE 25 MG TAB PO SCH (21:00)
[2022-09-01] MEDS ORDERED: TAMSULOSIN 0.4 MG CAP.ER.24H PO SCH (21:00)
[2022-09-01] MEDS ORDERED: ATORVASTATIN 40 MG TAB PO SCH (21:00)
[2022-09-02] MEDS ORDERED: LEVOTHYROXINE 75 MCG TAB PO SCH (06:30)
[2022-09-02] MEDS ORDERED: FINASTERIDE 5 MG TAB PO SCH (09:00)
[2022-09-02] MEDS ORDERED: LOSARTAN 25 MG TAB PO SCH (09:00)
[2022-09-02] MEDS: APIXABAN 5 MG TAB PO SCH (09:00)
[2022-09-02] MEDS ORDERED: PRIMIDONE 50 MG TAB PO SCH (09:00)
[2022-09-02] MEDS ORDERED: LOSARTAN 25 MG TAB PO STA (11:58)
[2022-09-02] MEDS: SODIUM CHLORIDE 0.9% 1,000 ML IV SCH (12:19)
[2022-09-02 14:04] VITALS: BP 177/79; PULSE 70; TEMP 97.9
--- NOTE | 2022-09-02 18:13 | P.DS ---
Providers Attending physician: Omid Romero [facility] Course: Patient is resting comfortably in bed. He has been ambulating around the room Asymptomatic Groins of healed well Heart sounds are normal breath sounds are clear no rhonchi no crackles Blood pressure is still elevated but he states at home his blood pressures in the normal range when he takes losartan 50 mrem by mouth daily The patient states that his losartan dose was recently reduced and he noticed that his blood pressure was elevated so he went back to taking 50 mrem by mouth daily Today he is being discharged home on losartan 50 g daily along with adequate ventilation He is undergone successful tibial atrial flutter ablation Impression Typical atrial flutter Status post successful ablation bidirectional block Hypertension Plan Follow Dr. Birmingham Plan - Discharge Summary Discharge Rx Participant: Yes New Discharge Prescriptions: New Losartan [Cozaar] 50 mg PO DAILY #0 tab Continue Primidone [Mysoline] 50 mg PO DAILY Levothyroxine Sodium [Levoxyl] 75 mcg PO DAILY Econazole Nitrate [Econazole Nitrate 1%] 1 applic TOPICAL DAILY Apixaban [Eliquis] 5 mg PO BID Tamsulosin HCl [Flomax] 0.4 mg PO HS Spironolactone [Aldactone] 25 mg PO HS Atorvastatin [Lipitor] 40 mg PO HS Finasteride [Proscar] 5 mg PO DAILY Losartan [Cozaar] 25 mg PO DAILY #30 tab Discharge Medication List Apixaban [Eliquis] 5 mg PO BID 07/24/22 [History] Atorvastatin [Lipitor] 40 mg PO HS 07/24/22 [History] Econazole Nitrate [Econazole Nitrate 1%] 1 applic TOPICAL DAILY 07/24/22 [History] Finasteride [Proscar] 5 mg PO DAILY 07/24/22 [History] Levothyroxine Sodium [Levoxyl] 75 mcg PO DAILY 07/24/22 [History] Primidone [Mysoline] 50 mg PO DAILY 07/24/22 [History] Spironolactone [Aldactone] 25 mg PO HS 07/24/22 [History] Tamsulosin HCl [Flomax] 0.4 mg PO HS 07/24/22 [History] Losartan [Cozaar] 25 mg PO DAILY #30 tab 07/26/22 [Rx] Losartan [Cozaar] 50 mg PO DAILY #0 tab 09/02/22 [Rx] Follow up Appointment(s)/Referral(s): Omid Romero MD [STAFF PHYSICIAN] - 09/05/22 11:45 am (At the [address] [facility]) Rachele Birmingham MD [STAFF PHYSICIAN] - 1 Week Patient Instructions/Handouts: *Surgery [facility] - After Heart Catheterization - Supervisor Rolling Room Instructions, Cardiac Ablation (DC) Activity/Diet/Wound Care/Special Instructions: Post EP study - Ablation instructions 1. Keep access sites dry for 2 days. 2. No heavy lifting or straining for 2 days. 3. Avoid bending the hips repeatedly for 2 days. 4. You may go up and down stairs slowly Call if the following is noted 1. Bleeding, increasing swelling or pain at the access sites. 2. Increasing chest discomfort, especially upon taking a deep breath. 3. Increasing shortness of breath, at rest or with exertion. 4. Undue cough / phlegm 5. Difficulty or pain while swallowing. 6. Pain or change in color in the extremities. 7. Fever, chills, rigors. 8. Increasing headache or neurologic symptoms. 9. Dizziness, fainting, palpitations Continue current medications follow Dr. Birmingham within week Discharge Disposition: HOME SELF-CARE
[2022-09-03] MEDS ORDERED: LOSARTAN 50 MG TAB PO SCH (09:00)
== END 2022-09-02 14:05 | disposition home or self-care (01) ==
LOC: CATHEP 09:24 → 6NMEDSUR 14:39 → CATHEP 09-02 14:05
PROVIDERS: ATTEND Internal Medicine Clinical Cardiac Electrophysiology
DX: I48.4 Atypical atrial flutter (principal); G47.30 Sleep apnea, unspecified; I11.0 Hypertensive heart disease with heart failure; I25.10 Atherosclerotic heart disease of native coronary artery without angina pectoris; I48.3 Typical atrial flutter; I48.91 Unspecified atrial fibrillation; I50.9 Heart failure, unspecified; N40.0 Benign prostatic hyperplasia without lower urinary tract symptoms; Z79.01 Long term (current) use of anticoagulants; Z79.899 Other long term (current) drug therapy; Z83.3 Family history of diabetes mellitus; Z87.891 Personal history of nicotine dependence; Z90.49 Acquired absence of other specified parts of digestive tract
CPT/HCPCS: 93623; 93662; 93653; 80048; 85025; C1769 ×3; C1894; C1760; C1730; C1759; C1893; C1732; S0138; J2250; J0330; J2001 ×2; J3010; J1644; J1170; J2704